=== PATIENT | female | born 1985 | race Caucasian/White ===

== ENCOUNTER 2020-02-10 18:47 | Emergency (ER) | payer MEDICAID ==
--- NOTE | 2020-02-10 20:07 | EDM.PDOC ---
ED HPI GENERAL MEDICAL PROBLEM - General Chief Complaint: Back Pain or Injury Stated Complaint: BACK PAIN Time Seen by Provider: 02/10/20 18:55 Source of Information: Reports: Patient History Limitations: Reports: No Limitations - History of Present Illness INITIAL COMMENTS - FREE TEXT/NARRATIVE: TRIAGE NOTE -- pt had history of sciatica to left back, c6 & c7 pinched nerve, was on gabapentin & Tramadol until october. since last week pt had on & off right lower back pain and got worst today and radiated to right lower leg. [ End ] As above. Patient has chronic low back pain. There is been some exacerbation over the past couple of days. No fresh injury. No fresh symptoms other than increased pain and no new neurological complaints subjectively. Patient has taken a total of 600 mg of ibuprofen today without effective. Risk factors include chronic low back pain which is been evaluated recurrently over several years apparently but no definitive imaging by MRI for about a year patient says. She does not have a local doctor and does not have anyone at present managing her low back pain. Risk factors also include cigarette smoking which is highly correlated with low back pain. Also of some importance in terms of risk would be history of psychotic illness which is been described as bipolar. Denies any decompensation of her psychiatric illness. There has been no other medication or other measure taken by patient to moderate her symptoms. 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: Musculoskeletal History: Reports: Back Pain, Chronic Neurological History: Reports: Brain Injury, Headaches, Chronic, Head Trauma, Seizure Psychiatric History: Reports: Bipolar, Other (See Below) Other Psychiatric History: borderline personality disorder - Past Surgical History GI Surgical History: Reports: Cholecystectomy Female Surgical History: Reports: Tubal Ligation Social & Family History - Tobacco Use Smoking Status *Q: Current Every Day Smoker Years of Tobacco use: 22 Packs/Tins Daily: 1 - Caffeine Use Caffeine Use: Reports: Coffee - Recreational Drug Use Recreational Drug Use: Yes Drug Use in Last 12 Months: No ED ROS GENERAL - Review of Systems Review Of Systems: Comprehensive ROS is negative, except as noted in HPI. ED EXAM,LOWER BACK PAIN/INJURY - Physical Exam Exam: See Below Exam Limited By: No Limitations General Appearance: Alert, WD/WN, No Apparent Distress Eye Exam: Bilateral Eye: EOMI, PERRL Ears: Normal External Exam Nose: Normal Inspection Throat/Mouth: Normal Inspection Head: Atraumatic, Normocephalic Neck: Normal Inspection, Supple Respiratory/Chest: No Respiratory Distress, Lungs Clear, Normal Breath Sounds Cardiovascular: Regular Rate, Rhythm GI/Abdominal: Soft, Non-Tender Back Exam: Normal Inspection, Other (Point tenderness on deep palpation of the right sacroiliac joint area) Extremities: Normal Inspection, Non-Tender, No Pedal Edema Neurological: Alert, No Motor/Sensory Deficits, Oriented x 3, Other (Chronic hyporeflexia lower extremities. No weakness or gait problem.) Psychiatric: Normal Affect (Except a bit strident and her request to be treated for her back pain) Skin Exam: Warm, Dry Course - Vital Signs Last Recorded V/S: Last Vital Signs Temp 36.7 C 02/10/20 19:05 Pulse 64 02/10/20 19:05 Resp 20 02/10/20 19:05 BP 122/84 02/10/20 19:05 Pulse Ox 100 02/10/20 19:05 - Orders/Labs/Meds Orders: Active Orders 24 hr Category Date Time Status UA W/MICROSCOPIC [URIN] Stat Lab 02/10/20 19:29 Results Ketorolac [Toradol] Med 02/10/20 20:09 Once 30 mg IM ONETIME ONE LORazepam [Ativan] Med 02/10/20 20:09 Once 2 mg IM ONETIME ONE Labs: Laboratory Tests 02/10/20 02/10/20 02/10/20 Range/Units 19:29 19:29 19:29 Urine Color Yellow (Yellow) Urine Appearance Clear (Clear) Urine pH 6.5 (5.0-8.0) Ur Specific [place] 1.020 (1.005-1.030) Urine Protein Negative (Negative) Urine Glucose (UA) Negative (Negative) Urine Ketones Negative (Negative) Urine Occult Blood 3+ H (Negative) Urine Nitrite Negative (Negative) Urine Bilirubin Negative (Negative) Urine Urobilinogen 0.2 (0.2-1.0) Ur Leukocyte Esterase Negative (Negative) Urine HCG, Qual Negative (NEGATIVE) Urine Opiates Screen Negative (YFNSBW=278) Ur Buprenorphine Scrn Negative (CUTOFF=10) Ur Oxycodone Screen Negative (SWT4PU=927) Urine Methadone Screen Negative (DMGKXG=435) Ur Propoxyphene Screen Negative (YGHQME=570) Ur Barbiturates Screen Negative (QRSLKN=263) Ur Tricyclics Screen Negative (PIPPWW=479) Ur Phencyclidine Scrn Negative (CUTOFF=25) Ur Amphetamine Screen Negative (JIVSJA=295) U Methamphetamines Scrn Negative (BHIUBH=311) U Benzodiazepines Scrn Negative (KHEHWT=561) U Cocaine Metab Screen Negative (ZKTLCH=614) U Marijuana (THC) Screen Negative (CUTOFF=50) - Re-Assessments/Exams Free Text/Narrative Re-Assessment/Exam: 02/10/20 20:07 We are responding to the patient's request to treat her chronic low back pain which seems to be in some exacerbation. She does not have a local doctor. She does have insurance. She is being referred to local resources including primary care physician for further management. There is nothing in the presentation suggesting a degree of acuity requiring imaging and further evaluation at this time. test negative she has had a tubal ligation in the past urinalysis is unremarkable and drug test is negative. Patient was counseled at some length about cigarette smoking and given to understand its influence on the low back pain which is to promotE IT. Departure - Departure Time of Disposition: 20:10 Disposition: Home, Self-Care 01 Condition: Good Clinical Impression: Acute exacerbation of chronic low back pain - Discharge Information *PRESCRIPTION DRUG MONITORING PROGRAM REVIEWED*: Not Applicable *COPY OF PRESCRIPTION DRUG MONITORING REPORT IN PATIENT DALLIN: Not Applicable Referrals: PCP,None [Primary Care Provider] - Forms: ED Department Discharge Additional Instructions: Been evaluated for your low back pain which appears to be acting up and causing additional pain for you. In the ER you have received 2 medications one an anti- inflammatory and another to relax your muscles which is going to be sedating. As you do not have a local doctor you are being referred. It would probably make sense to get an MRI of your low back since you have not had one for some time. Do not hesitate to return to the ER for any troubling concerns including gi weakness or fever or any other troubling symptom. You are urged to stop smoking cigarettes. Cigarette smoking is noted to be highly correlated with low back pain if not an underlying risk factor. Sepsis Event Note (ED) - Evaluation Sepsis Screening Result: No Definite Risk - Focused Exam Vital Signs: Vital Signs Temp Pulse Resp BP Pulse Ox 02/10/20 19:05 36.7 C 64 20 122/84 100 - My Orders Last 24 Hours: My Active Orders 02/10/20 19:29 UA W/MICROSCOPIC [URIN] Stat 02/10/20 20:09 Ketorolac [Toradol] 30 mg IM ONETIME ONE LORazepam [Ativan] 2 mg IM ONETIME ONE - Assessment/Plan Last 24 Hours: My Active Orders 02/10/20 19:29 UA W/MICROSCOPIC [URIN] Stat 02/10/20 20:09 Ketorolac [Toradol] 30 mg IM ONETIME ONE LORazepam [Ativan] 2 mg IM ONETIME ONE
[2020-02-10] MEDS ORDERED: Ketorolac 30 MG/ML SDV IM ONE (20:09)
[2020-02-10] MEDS ORDERED: LORazepam 2 MG/ML SDV IM ONE (20:09)
== END 2020-02-10 20:28 | disposition home or self-care (01) ==
LOC: JD.ED 18:47
DX: M54.5 Low back pain (principal); G89.29 Other chronic pain; F17.210 Nicotine dependence, cigarettes, uncomplicated; Z88.7 Allergy status to serum and vaccine; Z88.8 Allergy status to other drugs, medicaments and biological substances
CPT/HCPCS: 80306; 81001; 81025; 96372; 99283; J1885; J2060